=== PATIENT | female | born 1990 | race Caucasian/White ===

== ENCOUNTER 2017-11-28 14:57 | Emergency (ER) | payer MEDICAID ==
[~2017-11-28] VITALS: Ht 170.2 cm; Wt 83.9 kg
[~2017-11-28 14:57] MED LIST: BIRTH CONTROL; CIPRO500 M1 PO; CYMBALTA30 MG PO; FLEXERIL; FLOMAX0.4 MG PO; GABAPENTIN 100100 MG PO; HYDROCODONE-AP1 EAC6 PO; IBUPROFEN 800800 M1 PO; LEXAPRO 10 MG T10 MG PO; MELOXICAM10 GM; MINIPRESS2 MG PO; MOBIC15 MG PO; OXYCONTIN PO; OXYCONTIN10 M1; PRAZOSIN 1 MG CA1 M1; PROTONIX40 M1 PO; REMERON15 MG PO; SINGULAIR 10 MG10 M1 PO; WELLBUTRIN XL150 MG PO; XANAX 0.5 MG0.5 MG PO; ZOFRAN ODT4 M1 PO; ZOLOFT 50 MG TA50 M1 PO
[2017-11-28] MEDS ORDERED: ADDERALL 10 MG10 MG PO (15:09)
[2017-11-28] MEDS ORDERED: CELEXA10 MG PO (15:09)
[2017-11-28 15:22] LABS: URINE BILIRUBIN NEGATIVE (Negative); URINE BLOOD NEGATIVE (Negative); URINE CLARITY CLEAR; URINE COLOR YELLOW; URINE GLUCOSE-RANDOM NEGATIVE (Negative); URINE KETONES NEGATIVE (Negative); URINE LEUKOCYTES-REFLEX TRACE (Negative); URINE NITRITE-REFLEX NEGATIVE (Negative); URINE PROTEIN TRACE (Negative); URINE UROBILINOGEN 0.2 E.U./dl (0.2-1.0)
[2017-11-28 15:26] LABS: HEMATOCRIT 37.3 % (37.0-47.0); HEMOGLOBIN 12.3 gm/dL (12.0-15.0); MCV 84.8 fL (80.0-100.0); MPV 7.7 fl. (7.2-11.1); NUCLEATED RBCS 0 /100WBC; PLATELET COUNT* 293 thou/uL (150-400); RBC 4.39 mil/uL (4.20-5.00); RDW-CV 14.5 % (10.5-14.5); WBC 14.9 thou/uL (4.0-11.0)
[2017-11-28 15:37] LABS: MUCUS >6 Heavy strn/LPF (None Seen); SQUAMOUS >10 Many /LPF (0-3)
[2017-11-28 15:38] LABS: CALCIUM 8.7 mg/dL (8.5-10.1); CREATININE 0.8 mg/dL (0.6-1.3); POTASSIUM 3.9 mmol/L (3.5-5.1)
[2017-11-28 15:39] LABS: CASTS None Seen /LPF (None Seen)
[2017-11-28 15:40] LABS: BACTERIA-REFLEX >30 Many /HPF (None Seen); CRYSTALS None Seen /LPF (None Seen); URINE RBC 0-2 Rare /HPF (0-2)
[2017-11-28 15:48] LABS: ALBUMIN 3.4 g/dL (3.4-5.0); TOTAL BILIRUBIN 0.5 mg/dL (<0.1-1.0); TOTAL PROTEIN 7.7 g/dL (6.4-8.2)
[2017-11-28 15:56] LABS: ABSOLUTE EOSINOPHILS 0.3 thou/uL (0.0-0.7); ABSOLUTE LYMPHOCYTES 2.1 thou/uL (0.8-5.3); ABSOLUTE NEUTROPHILS 11.5 thou/uL (1.6-8.1)
[2017-11-28 15:58] LABS: PLATELET ESTIMATE ADEQUATE; TOXIC GRANULATION Occasional
[2017-11-28] MEDS ORDERED: BACTRIM DS TAB1 EACH PO (15:58)
[2017-11-28 16:05] VITALS: BP 129/89
== END 2017-11-28 16:05 | disposition home or self-care (01) ==
LOC: M.ERS 14:57
PROVIDERS: Nurse Practitioner Family
DX: N30.90 Cystitis, unspecified without hematuria (principal); F41.0 Panic disorder [episodic paroxysmal anxiety]; J45.909 Unspecified asthma, uncomplicated

== ENCOUNTER 2017-11-30 16:11 | Emergency (ER) | payer MEDICAID ==
[~2017-11-30] VITALS: Ht 170.2 cm; Wt 86.2 kg
[~2017-11-30 16:11] MED LIST changes: +ADDERALL 10 MG10 MG PO; +BACTRIM DS TAB1 EACH PO; +CELEXA10 MG PO
[2017-11-30 16:20] VITALS: BP 120/78
[2017-11-30] MEDS ORDERED: DOXYCYCLINE 10100 MG PO (16:20)
[2017-11-30] MEDS ORDERED: ZOFRAN ODT4 MG SUBLING (16:20)
[2017-11-30] MEDS ORDERED: NORCO 5-325 TA1 EACH PO (16:20)
== END 2017-11-30 16:36 | disposition home or self-care (01) ==
LOC: M.ERS 16:11
DX: N73.9 Female pelvic inflammatory disease, unspecified (principal); F41.0 Panic disorder [episodic paroxysmal anxiety]; J45.909 Unspecified asthma, uncomplicated

== ENCOUNTER 2019-06-12 15:29 | Emergency (ER) | payer OTHER ==
[~2019-06-12] VITALS: Ht 170.2 cm; Wt 74.8 kg
[~2019-06-12 15:29] MED LIST changes: +DOXYCYCLINE 10100 MG PO; +NORCO 5-325 TA1 EACH PO; +ZOFRAN ODT4 MG SUBLING
[2019-06-12 16:12] LABS: ABSOLUTE BASOPHILS 0.1 thou/uL (0.0-0.2); ABSOLUTE EOSINOPHILS 0.1 thou/uL (0.0-0.7); ABSOLUTE LYMPHOCYTES 1.5 thou/uL (0.8-5.3); ABSOLUTE MONOCYTES 0.8 thou/uL (0.0-1.2); ABSOLUTE NEUTROPHILS 10.8 thou/uL (1.6-8.1); BASOPHILS 0.5 %; EOSINOPHILS 0.8 %; HEMATOCRIT 37.1 % (37.0-47.0); HEMOGLOBIN 12.1 gm/dL (12.0-15.0); LYMPHOCYTES 11.6 %; MCH 26.6 pg (26.0-34.0); MCHC 32.7 g/dL (28.0-37.0); MCV 81.1 fL (80.0-100.0); MONOCYTES 6.3 %; MPV 7.8 fl. (7.2-11.1); NUCLEATED RBCS 0 /100WBC; PLATELET COUNT* 287 thou/uL (150-400); POLYS 80.8 %; RBC 4.57 mil/uL (4.20-5.00); RDW-CV 18.2 % (10.5-14.5); WBC 13.4 thou/uL (4.0-11.0)
[2019-06-12 16:13] LABS: URINE BILIRUBIN NEGATIVE (Negative); URINE BLOOD NEGATIVE (Negative); URINE CLARITY CLEAR; URINE COLOR YELLOW; URINE GLUCOSE-RANDOM NEGATIVE (Negative); URINE KETONES NEGATIVE (Negative); URINE LEUKOCYTES-REFLEX 1+ (Negative); URINE NITRITE-REFLEX NEGATIVE (Negative); URINE PROTEIN TRACE (Negative); URINE SPECIFIC GRAVITY 1.025 (1.005-1.030); URINE UROBILINOGEN 0.2 E.U./dl (0.2-1.0)
[2019-06-12 16:20] LABS: SQUAMOUS >10 Many /LPF (0-3)
[2019-06-12 16:21] LABS: CASTS None Seen /LPF (None Seen); MUCUS 4-6 Moderate strn/LPF (None Seen); URINE WBC-REFLEX 6-15 Few /HPF (0-5)
[2019-06-12 16:22] LABS: CRYSTALS None Seen /LPF (None Seen); URINE RBC None Seen /HPF (0-2)
[2019-06-12 16:30] LABS: CREATININE 0.7 mg/dL (0.6-1.3); POTASSIUM 3.4 mmol/L (3.5-5.1)
[2019-06-12 16:35] LABS: ALBUMIN 2.9 g/dL (3.4-5.0); TOTAL BILIRUBIN 0.3 mg/dL (<0.1-1.0); TOTAL PROTEIN 6.4 g/dL (6.4-8.2)
[2019-06-12 16:35] LABS: AMP/METHAMP Negative (Negative); BARBITURATES Negative (Negative); BENZODIAZEPINES Negative (Negative); COCAINE Negative (Negative); METHADONE Negative (Negative); OPIATES Negative (Negative); PCP Negative (Negative); THC POSITIVE (Negative)
[2019-06-12] MEDS ORDERED: KEFLEX500 M1 PO (17:46)
[2019-06-12 18:02] VITALS: BP 122/76
--- NOTE | 2019-06-13 16:04 | EKG ---
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
== END 2019-06-12 18:03 | disposition home or self-care (01) ==
LOC: M.ERS 15:29
PROVIDERS: Physician Assistant
DX: O20.0 Threatened abortion (principal); O21.8 Other vomiting complicating pregnancy; O23.41 Unspecified infection of urinary tract in pregnancy, first trimester; O99.341 Other mental disorders complicating pregnancy, first trimester; O99.511 Diseases of the respiratory system complicating pregnancy, first trimester; O99.321 Drug use complicating pregnancy, first trimester; F12.90 Cannabis use, unspecified, uncomplicated; Z3A.09 9 weeks gestation of pregnancy; Z79.899 Other long term (current) drug therapy